=== PATIENT | female | born 1935 | race Two or more races ===

== ENCOUNTER 2025-09-25 10:17 | Emergency (ER) | payer OTHER ==
[~2025-09-25] VITALS: Ht 154.9 cm; Wt 60.8 kg
[2025-09-25] MEDS ORDERED: ORPHENADRINE CITRATE 30 MG/ML AMPUL IM ONE (11:00)
[2025-09-25] MEDS ORDERED: DEXAMETHASONE SODIUM PHOSPHATE 4 MG/ML VIAL IM ONE (11:00)
[2025-09-25 12:11] LABS: BASO % 0.8 % (0.1-1.2); EOS # 0.27 (0.04-0.54); EOS % 4.2 % (0.7-7.0); LYMPH # 0.73 (1.18-3.74); LYMPH % 11.4 % (19.3-53.1); MEAN PLATELET VOLUME 8.90 fl (9.4-12.4); MONO # 0.46 (0.24-0.82); MONO % 7.2 % (4.7-12.5); NEUT # 4.89 (1.56-6.13); NEUT % 76.2 % (34.0-71.1); RED CELL DISTRIBUTION WIDTH 13.2 % (11.6-14.4)
[2025-09-25 12:33] LABS: INR 1.02
[2025-09-25 13:05] LABS: BUN CREA RATIO 24.0 (7.0-25.0); CREATININE SERUM 0.37 mg/dL (0.55-1.02); GFR 164.82; GLUCOSE FASTING 86.0 mg/dL (65-100); OSMOLALITY SERUM 283.0 MOSM/KG (275-295)
[2025-09-25 13:48] LABS: URINE APPEARANCE Clear; URINE BILIRRUBIN Negative (NEGATIVE); URINE BLOOD Negative; URINE COLOR Yellow; URINE GLUCOSE Negative (NEGATIVE); URINE LEUKOCYTE Negative; URINE NITRATE Negative; URINE PROTEIN Negative (NEGATIVE); URINE UROBILINOGEN 0.2 E.U./dl
[2025-09-25 13:53] LABS: URINE BACTERIA 162.3 uL (0.0-1933); URINE RBC 17.7 uL (0.0-20.8); URINE WBC 4.5 uL (0.0-23.2)
[2025-09-25 14:00] LABS: URINE CAST 0.14 uL (0.0-1.40); URINE EPITHELIAL CELLS 0.6 uL (0.0-38.8); URINE KETONE >=160 (NEGATIVE)
[2025-09-26 07:08] VITALS: BP 169/73; O2SAT 97
== END 2025-09-26 07:11 | disposition designated cancer center or children's hospital (05) ==
LOC: ER 10:17
PROVIDERS: General Practice
DX: S72.092A Other fracture of head and neck of left femur, initial encounter for closed fracture (principal); W19.XXXA Unspecified fall, initial encounter; Y93.89 Activity, other specified; Y92.89 Other specified places as the place of occurrence of the external cause; Y99.8 Other external cause status; Z88.0 Allergy status to penicillin; M85.88 Other specified disorders of bone density and structure, other site
CPT/HCPCS: 36415; 51702; 73502; 73551; 96372; 99285; J1100; J2360